=== PATIENT | female | born 1985 | race Caucasian/White ===

== ENCOUNTER 2018-12-31 15:11 | Emergency (ER) | payer SELFPAY ==
[~2018-12-31] VITALS: Ht 154.9 cm; Wt 81.6 kg
[2018-12-31 16:00] VITALS: BP 115/70
--- NOTE | 2018-12-31 18:22 | NUR ---
PT AMBULATED TO ER BED 11
[2018-12-31] MEDS ORDERED: KETOROLAC 30 MG/ML VIAL IM ONE (18:50)
[2018-12-31] MEDS ORDERED: DEXAMETHASONE 10 MG/ML VIAL IM ONE (18:50)
--- NOTE | 2018-12-31 19:05 | NUR ---
REPORT RECEIVED FROM MARIMAR INTERIANO
--- NOTE | 2018-12-31 19:13 | NUR ---
PATIENT PRESENTS TO ED WITH C/O CONSTANT RIGHT HAND PAIN >2 MONTHS---DENIES RECENT INJURY +2 RADIAL PULSE <3 SEC CAP REFILL . DENIES N/V/D; SKIN IS PINK/WARM/DRY; AAOX4 WITH EVEN AND STEADY GAIT; LUNGS CLEAR BL; HR EVEN AND REGULAR; PT DENIES ANY FEVER, CP, SOB, OR COUGH AT THIS TIME; PATIENT STATES PAIN OF 5/10 AT THIS TIME; VSS; PATIENT POSITIONED FOR COMFORT; HOB ELEVATED; BEDRAILS UP X2; BED DOWN. ER MD MADE AWARE OF PT STATUS.
[2018-12-31 19:25] VITALS: BP 116/71
--- NOTE | 2018-12-31 19:25 | NUR ---
Patient discharged with v/s stable. Written and verbal after care instructions given and explained. Patient alert, oriented and verbalized understanding of instructions. Ambulatory with steady gait. All questions addressed prior to discharge. ID band removed. Patient advised to follow up with PMD. Rx of TYLENOL, VOLTAREN TOPICAL GEL, MOTRIN, AND PREDNISONE given. Patient educated on indication of medication including possible reaction and side effects. Opportunity to ask questions provided and answered.
== END 2018-12-31 19:25 | disposition home or self-care (01) ==
LOC: MED 15:11
DX: G56.01 Carpal tunnel syndrome, right upper limb (principal); K21.9 Gastro-esophageal reflux disease without esophagitis
CPT/HCPCS: 29125; 96372; 99283; J1100; J1885